=== PATIENT | male | born 1950 | race Two or more races ===

== ENCOUNTER → 2016-09-19 | Outpatient (CLI) | payer MEDICARE, OTHER ==
[~2016-09-19] MED LIST: ASPI-515 PO; BRIM5DRO2 EACHEYE; ERGOCALCIFEROL PO; LATA2.5D3 EACHEYE; LIQUID TEARS EACHEYE; METF10002 PO; METF500T4 PO; METO50TA82 PO; SIMV40TA3 PO; SPIR25TA3 PO; VALSARTAN PO; [UNRECOGNIZED DRUG - OTHER] PO; [UNRECOGNIZED DRUG - OTHER] PO
== END | disposition home or self-care (01) ==
LOC: STAR 08:18
PROVIDERS: ATTEND Urology
DX: Z01.818 Encounter for other preprocedural examination (principal); N20.1 Calculus of ureter
CPT/HCPCS: 93005

== ENCOUNTER → 2016-09-23 | Outpatient (CLI) | payer MEDICARE, OTHER | END | disposition home or self-care (01) | LOC: RAD 08:04 | PROVIDERS: ATTEND Urology | DX: N20.1 Calculus of ureter (principal) | CPT/HCPCS: 74000 ==

== ENCOUNTER 2016-09-24 09:27 | Day surgery (SDC) | payer MEDICARE, OTHER ==
[~2016-09-24] VITALS: Ht 177.8 cm; Wt 100.0 kg
[2016-09-24] MEDS ORDERED: LACTATED RINGERS 1,000 ML IV SCH (09:58)
[2016-09-24] MEDS ORDERED: METOPROLOL TARTRATE 50 MG TABLET PO ONE (09:59)
[2016-09-24 10:02] VITALS: BP 154/94
[2016-09-24] MEDS ORDERED: FENTANYL PF 250 MCG/5ML ONE (11:37)
[2016-09-24] MEDS ORDERED: MIDAZOLAM 1 MG/ML, 2ML ONE (11:37)
[2016-09-24] MEDS ORDERED: DEXAMETHASONE 4 MG/ML, 5ML ONE (12:20)
[2016-09-24] MEDS ORDERED: PROPOFOL 10 MG/ML, 20ML ONE (12:20)
[2016-09-24] MEDS ORDERED: CEFAZOLIN 1,000 MG ONE (12:20)
[2016-09-24] MEDS ORDERED: PHENYLEPHRINE 10 MG/ML ONE (12:20)
[2016-09-24] MEDS ORDERED: SUCCINYLCHOLINE 20 MG/ML, 10ML ONE (12:20)
[2016-09-24] MEDS ORDERED: ALBUTEROL/IPRATROPIUM 2.5MG/0.5MG, 3 ML NPPB PRN (13:30)
[2016-09-24] MEDS ORDERED: ONDANSETRON 2MG/ML, 2ML IVPush PRN (13:30)
[2016-09-24] MEDS ORDERED: LABETALOL 5MG/ML, 20ML IV PRN (13:30)
[2016-09-24] MEDS ORDERED: hydrALAzine 20 MG/ML, 1ML IV PRN (13:30)
[2016-09-24] MEDS ORDERED: FENTANYL PF 100 MCG/2ML IV PRN (13:30)
[2016-09-24] MEDS ORDERED: PROMETHAZINE 25 MG/ML, 1ML IV PRN (13:30)
[2016-09-24] MEDS ORDERED: ACETAMINOPHEN 325 MG TABLET PO PRN (13:30)
[2016-09-24] MEDS ORDERED: MEPERIDINE/PF 25MG/0.5ML IVPush PRN (13:30)
[2016-09-24] MEDS ORDERED: MIDAZOLAM 1 MG/ML, 2ML IV PRN (13:30)
[2016-09-24] MEDS ORDERED: OXYcodone 5 MG/5 ML ORAL.SOL UDC PO PRN (13:30)
[2016-09-24] MEDS ORDERED: HYDROmorphone 1 MG/ML, 1ML IV PRN (13:30)
[2016-09-24] MEDS ORDERED: EPHEDRINE 50 MG/ML, 1ML IVPush PRN (13:30)
== END 2016-09-24 16:55 | disposition home or self-care (01) ==
LOC: OUT 09:27
PROVIDERS: ATTEND Urology
DX: N20.1 Calculus of ureter (principal); E11.9 Type 2 diabetes mellitus without complications; I10 Essential (primary) hypertension; I25.10 Atherosclerotic heart disease of native coronary artery without angina pectoris; I25.2 Old myocardial infarction; Z95.810 Presence of automatic (implantable) cardiac defibrillator; I48.91 Unspecified atrial fibrillation; E78.00 Pure hypercholesterolemia, unspecified; M19.90 Unspecified osteoarthritis, unspecified site; Z82.49 Family history of ischemic heart disease and other diseases of the circulatory system; Z84.1 Family history of disorders of kidney and ureter; Z87.891 Personal history of nicotine dependence
CPT/HCPCS: 50590; 52332; 82962; C1758; C1769; C2617; J0330; J0690; J1100; J2250; J2370; J2704; J3010; J7120